=== PATIENT | male | born 1985 | race African-American/Black ===

== ENCOUNTER 2016-08-04 22:09 | Inpatient (IN) | payer OTHER ==
[~2016-08-04] VITALS: Ht 203.2 cm; Wt 93.0 kg
--- NOTE | 2016-08-04 22:40 | NUR ---
To bed 7 a 30 yo male bibself, patient states that he had appendectomy 10 days ago and now he has fever and headache x4 days. Patient is aaox4, ambulatory with steady gait. No s/s of acute distress. Initiated md tellez. Awaiting for er md tellez.
[2016-08-04] MEDS ORDERED: IV NS 0.9% 1,000 ML BAG IV ONE (23:00)
--- NOTE | 2016-08-04 23:00 | NUR ---
started a saline lock on the lac g20, blood drawn and sent to lab.
[2016-08-04] MEDS ORDERED: MORPHINE SULFATE INJ 4 MG/ML DISP.SYRIN ONE (23:04)
[2016-08-04] MEDS ORDERED: ONDANSETRON HCL/PF 4 MG/2 ML VIAL ONE (23:04)
[2016-08-04] MEDS ORDERED: IV NS 0.9% 1,000 ML ONE (23:04)
[2016-08-04] MEDS ORDERED: IV SET PRIMARY 1 EA INFUS.SET MC ONE (23:04)
[2016-08-04] MEDS: MORPHINE SULFATE INJ 2 MG/ML DISP.SYRIN IV ONE (23:12)
[2016-08-04] MEDS: ONDANSETRON HCL/PF 4 MG/2 ML VIAL IVP ONE (23:13)
[2016-08-04 23:23] LABS: APPEARANCE,URINE CLEAR (CLEAR); BILIRUBIN,URINE NEGATIVE (NEGATIVE); BLOOD, URINE NEGATIVE Ery/uL (NEGATIVE); COLOR,URINE YELLOW (YELLOW); KETONES,URINE NEGATIVE (NEGATIVE); LEUKOCYTE ESTERASE ,URINE NEGATIVE (NEGATIVE); NITRITE, URINE NEGATIVE (NEGATIVE); PROTEIN,URINE 1+ mg/dl (NEGATIVE); UGLUCOSE NEGATIVE (NEGATIVE); UROBILINOGEN,URINE 0.2 EU/dL (0.2)
[2016-08-04 23:26] LABS: BASOPHILS # (AUTO) 0.2 /CMM (0.0-0.2); BASOPHILS % (AUTO) 2.3 % (0.0-2.0); EOSINOPHILS # (AUTO) 0.5 /CMM (0.0-0.7); EOSINOPHILS % (AUTO) 6.1 % (0.0-6.0); HEMATOCRIT 37 % (39-51); HEMOGLOBIN 12.5 g/dL (13.5-17.5); LYMPHOCYTES # (AUTO) 1.2 /CMM (0.8-4.8); MEAN CORPUSCULAR HEMOGLOBIN 27 PG (26.0-33.0); MEAN CORPUSCULAR HGB CONC 34 g/dl (31.0-36.0); MEAN CORPUSCULAR VOLUME 78 fL (80-96); MONOCYTES # (AUTO) 0.9 /CMM (0.1-1.30); MONOCYTES % (AUTO) 11.7 % (2.0-12.0); NEUTROPHILS # (AUTO) 5.2 /CMM (1.8-8.9); NEUTROPHILS % (AUTO) 64.9 % (43.0-81.0); PLATELET COUNT (AUTO) 261 /CMM (150-450); RDW COEFFICIENT OF VARIATION 11.9 (11.5-15.0)
[2016-08-04 23:33] LABS: BACTERIA,URINE None seen /HPF (None Seen); RBC,URINE NONE SEEN /HPF (0-2); SQUAMOUS EPITHELIAL CELL,UR Rare /HPF (None Seen); WBC,URINE 0-2 /HPF (0-3)
[2016-08-04 23:34] LABS: INR 1.11 (0.87-1.13); PROTHROMBIN TIME 11.9 SECS (9.5-12.7)
[2016-08-04 23:34] LABS: MUCUS,URINE Rare /LPF (None Seen)
[2016-08-04 23:42] LABS: TROPONIN I < 0.017 ng/mL (0.00-0.056)
[2016-08-04 23:46] LABS: CALCIUM, SERUM 8.9 mg/dL (8.5-10.1); CARBON DIOXIDE 29 mmol/L (21-32); CHLORIDE 101 mmol/L (98-107); CREATININE 1.4 mg/dL (0.6-1.3); GLUCOSE 113 mg/dL (74-106); POTASSIUM 3.9 mmol/L (3.5-5.1); SODIUM SERUM 138 mmol/L (136-145); UREA NITROGEN, BLOOD 17 mg/dL (7-18)
[2016-08-04 23:51] LABS: ALANINE AMINOTRANSFERASE 114 U/L (12-78); ALBUMIN 3.3 g/dL (3.4-5.0); ALKALINE PHOSPHATASE 730 U/L (46-116); ASPARTATE AMINOTRANSFERASE 75 U/L (15-37); BILIRUBIN,DIRECT 0.2 mg/dL (0.0-0.2); BILIRUBIN,TOTAL 0.8 mg/dL (0.2-1.0)
[2016-08-04] MEDS ORDERED: IV NS 0.9% 250 ML IV ONE (23:52)
[2016-08-04] MEDS ORDERED: IOHEXOL-300 100 ML VIAL IV ONE (23:52)
--- NOTE | 2016-08-05 00:27 | NUR ---
Back from ct.
[2016-08-05] MEDS ORDERED: DICYCLOMINE HCL INJ 20 MG/2 ML AMPUL IM ONE ×2 (01:20→01:30)
[2016-08-05] MEDS ORDERED: ONDANSETRON HCL/PF 4 MG/2 ML VIAL ONE (01:34)
[2016-08-05] MEDS ORDERED: MORPHINE SULFATE INJ 4 MG/ML DISP.SYRIN ONE (01:34)
[2016-08-05] MEDS ORDERED: CHOL4PAC2 PO (01:35)
[2016-08-05] MEDS: MORPHINE SULFATE INJ 2 MG/ML DISP.SYRIN IV ONE (01:41)
[2016-08-05] MEDS: ONDANSETRON HCL/PF 4 MG/2 ML VIAL IVP ONE (01:43)
--- NOTE | 2016-08-05 01:46 | NUR ---
Report given to Jaswinder CHRISTY for medsurg admission.
[2016-08-05] MEDS ORDERED: CIPROFLOXACIN IV RTU 200 ML IV ONE (01:48)
[2016-08-05] MEDS ORDERED: IV SET PRIMARY PUMP SET 1 EA INFUS.SET MC ONE ×2 (01:48→14:54)
[2016-08-05] MEDS: FLAGYL/NS RTU 500 MG/100 ML PIGGYBACK IV ONE ×2 (01:56→03:18)
[2016-08-05] MEDS: CIPROFLOXACIN IV RTU 400 MG in PREMIX 1 EA IV SCH ×2 (01:56→13:37)
--- NOTE | 2016-08-05 01:57 | NUR ---
Non-admin flagyl 500mg ivpb order, received written order by Dr Elder for floor RN Jaswinder to carry out.
--- NOTE | 2016-08-05 02:06 | NUR ---
Transported to [facility] Room 107, no incident noted. Patient reported relief from abdl pain. VSS.
[2016-08-05 02:10] VITALS: BP 109/66
--- NOTE | 2016-08-05 02:30 | NUR ---
RN NOTE; BELONGINGS CHECKED BY CHARGE NURSE RICHARD AND DANNY WANG , BELONGINGS WITH PATIENT INCLUDING MONEY . SKIN INTACT PER PATIENT .
[2016-08-05] MEDS ORDERED: diphenhydrAMINE HCL 50 MG/ML VIAL ONE (02:40)
[2016-08-05] MEDS ORDERED: MORPHINE SULFATE INJ 2 MG/ML DISP.SYRIN IV PRN (03:00)
[2016-08-05] MEDS ORDERED: diphenhydrAMINE HCL 50 MG/ML VIAL IV PRN (03:00)
--- NOTE | 2016-08-05 03:00 | NUR ---
ADMISSION NOTE; A PATIENT ADMITTED FROM ER VIA GURNEY WITH THE DX OF ILEUS/ENTERITIS . PT IS A/O X 4 ,BREATHING EVEN AND UNLABORED ON ROOM AIR .NO ANY DISTRESS . WITH LAC 20 G PERIPHERAL IV INTACT AND PATENT . UNIT ORIENTATION GIVEN. ABLE TO GO TO THE RESTROOM . CALL LIGHT WITHIN REACH. BENADRYL IV GIVEN PER PT REQUEST . WILL CONTINUE TO MONITOR .
[2016-08-05] MEDS ORDERED: METRONIDAZOLE 500MG/ NS 100ML 100 ML IV ONE (03:01)
[2016-08-05] MEDS ORDERED: SECONDARY IV SET 1 EA INFUS.SET MC ONE (03:04)
[2016-08-05] MEDS ORDERED: PIPERACILLIN /TAZOBACTAM 3.375 G in IV D5W 50 ML IV SCH ×2 (06:00→12:00)
[2016-08-05] MEDS ORDERED: ONDANSETRON HCL/PF 4 MG/2 ML VIAL IVP PRN (06:00)
[2016-08-05] MEDS ORDERED: ACETAMINOPHEN 325 MG TABLET PO PRN (06:00)
--- NOTE | 2016-08-05 07:32 | NUR ---
RN EOS NOTE; PT REMAINED STABLE WITHOUT ANY DISTRESS . ALL NEEDS ATTENDED PROMPTLY. ALL PRESCRIBED MEDS TOLERATED WELL. CALL LIGHT WITHIN REACH. ENDORSED TO NEXT SHIFT FOR CONTINUITY OF CARE .
[2016-08-05 08:00] VITALS: BP 115/57
[2016-08-05] MEDS ORDERED: PANTOPRAZOLE 40 MG VIAL IV SCH (09:00)
[2016-08-05 11:05] VITALS: BP 115/57
[2016-08-05 12:21] LABS: BASOPHILS % (AUTO) 0.5 % (0.0-2.0); EOSINOPHILS # (AUTO) 0.4 /CMM (0.0-0.7); EOSINOPHILS % (AUTO) 4.8 % (0.0-6.0); HEMATOCRIT 35 % (39-51); HEMOGLOBIN 11.8 g/dL (13.5-17.5); LYMPHOCYTES # (AUTO) 1.3 /CMM (0.8-4.8); LYMPHOCYTES % (AUTO) 16.6 % (20.0-44.0); MEAN CORPUSCULAR HEMOGLOBIN 27 PG (26.0-33.0); MEAN CORPUSCULAR HGB CONC 34 g/dl (31.0-36.0); MEAN CORPUSCULAR VOLUME 79 fL (80-96); MONOCYTES % (AUTO) 12.4 % (2.0-12.0); NEUTROPHILS # (AUTO) 5.1 /CMM (1.8-8.9); NEUTROPHILS % (AUTO) 65.7 % (43.0-81.0); PLATELET COUNT (AUTO) 315 /CMM (150-450); RDW COEFFICIENT OF VARIATION 12.8 (11.5-15.0); RED BLOOD CELL COUNT(AUTO) 4.43 MIL/uL (4.5-6.0); WHITE BLOOD COUNT (AUTO) 7.7 K/uL (4.3-11.0)
[2016-08-05 12:31] LABS: CALCIUM, SERUM 9.1 mg/dL (8.5-10.1); CREATININE 1.6 mg/dL (0.6-1.3); POTASSIUM 4.5 mmol/L (3.5-5.1)
[2016-08-05 12:37] LABS: MAGNESIUM 1.9 mg/dL (1.8-2.4); PHOSPHORUS 3.8 mg/dL (2.5-4.9); TOTAL PROTEIN, SERUM 7.5 g/dL (6.4-8.2)
--- NOTE | 2016-08-05 14:36 | NUR ---
PATIENT SEEN BY DR. Lester BAILEY WHO GAVE VERBAL ORDERS FOR IV FLUIDS NS @ 75ML/HR FOR A TOTAL OF 2L.
[2016-08-05] MEDS ORDERED: IV NS 0.9% 1,000 ML BAG IV ONE (15:00)
[2016-08-05] MEDS: IV NS 0.9% 1,000 ML IV PRN ×2 (15:32→16:15)
== END 2016-08-05 17:48 | disposition left against medical advice (07) | DRG 389 ==
LOC: ER 22:09 → MEDSG1 08-05 01:43
PROVIDERS: ADMIT Internal Medicine; ATTEND Internal Medicine
DX: K56.7 Ileus, unspecified (principal); K51.90 Ulcerative colitis, unspecified, without complications; N17.9 Acute kidney failure, unspecified; R10.9 Unspecified abdominal pain; D50.9 Iron deficiency anemia, unspecified; R74.0 Nonspecific elevation of levels of transaminase and lactic acid dehydrogenase [LDH]
CPT/HCPCS: 36415; 70450-TC; 71010-TC; 80048-TC; 80053-TC; 80076-TC; 81000-TC; 83540-TC; 83605-TC; 83735-TC; 84100-TC; 84484-TC; 85025-TC; 85730-TC; 86140-TC; 86403-TC; 87040-TC; 87070-TC; 87081-TC; 87086-TC; 87400; A4216; A4606; C9113; J0500; J0744; J1200; J2270; J2405; J2543; J3490; J7030; J7050; J7060; Q9967; Z7610

== ENCOUNTER 2016-08-06 08:27 | Inpatient (IN) | payer OTHER ==
[~2016-08-06] VITALS: Ht 203.2 cm; Wt 93.0 kg
[~2016-08-06 08:27] MED LIST: CHOL4PAC2 PO
--- NOTE | 2016-08-06 08:39 | NUR ---
PT BIB SELF CO ABDOMINAL PAIN, DIARRHEA. GOWNED PT. AWAITING MD ORDER.
--- NOTE | 2016-08-06 08:45 | NUR ---
DR CRUZ AT BEDSIDE FOR EVAL
--- NOTE | 2016-08-06 09:00 | NUR ---
LAC #18 IV ACCESS. BLOOD SAMPLE COLLECTED SENT TO LAB
[2016-08-06 09:12] LABS: BASOPHILS % (AUTO) 0.7 % (0.0-2.0); EOSINOPHILS # (AUTO) 0.5 /CMM (0.0-0.7); HEMATOCRIT 35 % (39-51); HEMOGLOBIN 11.5 g/dL (13.5-17.5); LYMPHOCYTES # (AUTO) 1.2 /CMM (0.8-4.8); LYMPHOCYTES % (AUTO) 20.3 % (20.0-44.0); MEAN CORPUSCULAR HEMOGLOBIN 26 PG (26.0-33.0); MEAN CORPUSCULAR HGB CONC 33 g/dl (31.0-36.0); MEAN CORPUSCULAR VOLUME 79 fL (80-96); MONOCYTES # (AUTO) 0.8 /CMM (0.1-1.30); MONOCYTES % (AUTO) 12.8 % (2.0-12.0); NEUTROPHILS # (AUTO) 3.4 /CMM (1.8-8.9); NEUTROPHILS % (AUTO) 57.2 % (43.0-81.0); PLATELET COUNT (AUTO) 292 /CMM (150-450); RDW COEFFICIENT OF VARIATION 11.6 (11.5-15.0); RED BLOOD CELL COUNT(AUTO) 4.36 MIL/uL (4.5-6.0); WHITE BLOOD COUNT (AUTO) 5.9 K/uL (4.3-11.0)
[2016-08-06] MEDS ORDERED: IV NS 0.9% 1,000 ML ONE (09:37)
[2016-08-06] MEDS ORDERED: IV SET PRIMARY PUMP SET 1 EA INFUS.SET MC ONE ×2 (09:37→12:05)
[2016-08-06 09:39] LABS: CALCIUM, SERUM 9.3 mg/dL (8.5-10.1); CREATININE 1.4 mg/dL (0.6-1.3); POTASSIUM 4.2 mmol/L (3.5-5.1)
[2016-08-06 09:45] LABS: ALBUMIN 3.2 g/dL (3.4-5.0); BILIRUBIN,TOTAL 1.2 mg/dL (0.2-1.0); TOTAL PROTEIN, SERUM 7.6 g/dL (6.4-8.2)
--- NOTE | 2016-08-06 09:50 | NUR ---
GAVE REPORT TO LATISHAFARIHA FOR REPORT MEDSURG DR PARTIDA ADMITTING DX ADBOMINAL PAIN.
[2016-08-06] MEDS ORDERED: IV NS 0.9% 1,000 ML BAG IV ONE (10:00)
--- NOTE | 2016-08-06 10:15 | NUR ---
MS RN NOTES RECEIVED PT. FROM ER NURSE IN STABLE CONDITION. WILL BEGIN ADMISSION PROCESS AND AWAIT FURTHER ORDERS FROM THE DOCTOR.
[2016-08-06] MEDS ORDERED: IV NS 0.9% 1,000 ML BAG IV PRN (10:30)
--- NOTE | 2016-08-06 10:43 | NUR ---
MS RN NOTES PT IS REQUESTING TO BE MOVED TO ANOTHER ROOM OR FLOOR. STATES THAT HE DOES NOT LIKE HIS CURRENT ROOM. I EXPLAINED THAT THIS ROOM WAS THE ONLY PRIVATE ROOM AVAILABLE ON THIS UNIT AND WE WILL TRY OUR BEST TO ACCOMMODATE HIM HERE, HOWEVER, HE STILL REQUESTS TO BE MOVED. ALBINO THE CHARGE WAS MADE AWARE AND WILL CONTACT ADMINISTRATION.
[2016-08-06] MEDS ORDERED: IV NS 0.9% 1,000 ML IV PRN (11:00)
--- NOTE | 2016-08-06 12:00 | NUR ---
MS RN NOTES REPORT GIVEN TO MALAIKA IN [place]. PT. WAS TRANSFERRED TO ROOM 102 IN STABLE CONDITION.
[2016-08-06] MEDS ORDERED: SECONDARY IV SET 1 EA INFUS.SET MC ONE (12:05)
--- NOTE | 2016-08-06 12:05 | NUR ---
MS transfer station attendant notes from [facility] Patient is alert and oriented x 4, verbally responsive and able to make needs known. Started IV antibiotic flagyl as scheduled. IV hydration in placed. IV intact and patent. Dr. Junior is aware of the transfer from [facility] to [place]. Kept patient clean and comfortable in bed, call light with in patient reach, will continue to monitor accordingly. Vital signs checked and recorded.
[2016-08-06] MEDS: METRONIDAZOLE 500MG/ NS 100ML 500 MG in PREMIX 1 EA IV SCH ×2 (12:16→18:30)
[2016-08-06] MEDS ORDERED: ZOLPIDEM TARTRATE 5 MG TABLET PO PRN (12:30)
[2016-08-06] MEDS ORDERED: ACETAMINOPHEN 325 MG TABLET PO PRN (12:30)
[2016-08-06] MEDS ORDERED: ONDANSETRON HCL/PF 4 MG/2 ML VIAL IVP PRN (12:30)
[2016-08-06] MEDS ORDERED: MAG HYDROX/AL HYDROX/SIMETH 30 ML UDC PO PRN (12:30)
[2016-08-06] MEDS ORDERED: MAGNESIUM HYDROXIDE 30 ML UDC PO PRN (12:30)
[2016-08-06] MEDS ORDERED: HYDROCODONE/APAP 5/325MG 1 EACH TABLET PO PRN (12:30)
--- NOTE | 2016-08-06 12:53 | NUR ---
ms rn notes Informed Dr. Junior regarding patient asking for pain medication and MD aware and ordered Morphine 2 mg IVP Q3hrs PRN and D/C tylenol and norco due to patient is allergic to tylenol. Motrin 400 mg 1 tab PO Q6hrs PRN. All orders carried out and noted. Will continue to monitor accordingly.
[2016-08-06] MEDS ORDERED: IBUPROFEN 400 MG TABLET PO PRN (13:00)
[2016-08-06] MEDS: MORPHINE SULFATE INJ 2 MG/ML DISP.SYRIN IV PRN ×3 (13:01→22:07)
[2016-08-06] MEDS: LEVOFLOXACIN 750 MG /D5W 150ML 750 MG in PREMIX 1 EA IV SCH (14:04)
[2016-08-06] MEDS ORDERED: diphenhydrAMINE HCL 50 MG CAPSULE PO ONE (17:00)
[2016-08-06] MEDS ORDERED: diphenhydrAMINE HCL 50 MG/ML VIAL ONE (19:15)
--- NOTE | 2016-08-06 19:20 | NUR ---
RN OPENING NOTES: RECEIVED PT ON BED AWAKE ALOX4 ON ROOM AIR NOT IN APPARENT DISTRESS. IV ACCESS ON LFA G18. NO COMPLAINTS OF PAIN AT THIS TIME. PT KEPT NPO PER REPORT, FOR PENDING MRI OF ABDOMEN AN MRCP WITHOUT CONTRAST. PATIENT REQUESTING FOR BENADRYL IV PRIOR TO MRI. INFORMED DR ANDREY HACKETT PATIENT'S REQUEST; RECEIVED A ONE TIME ORDER OF 50 MG IVP OF BENADRYL PRIOR TO MRI PROCEDURE. ROUSTABOUT CAME TO AUDIO NARRATOR PATIENT, BUT ASKED TO COME BACK IN A FEW MINUTES MED STILL TO BE GIVEN ORDERED. CONTINUOUSLY MONITORED PATIENT. 1950 PATIENT PICKED UP BY TECH FROM ROOM FOR MRI VIA WHEELCHAIR, SAFETY MEASURES ENSURED. NOT IN APPARENT DISTRESS.
--- NOTE | 2016-08-06 19:22 | NUR ---
ms rn closing notes All needs provided, attended, and anticipated. Kept patient clean and comfortable in bed, call light with in patient reach, endorsed to next shift RN to continue care.
[2016-08-06] MEDS ORDERED: diphenhydrAMINE HCL 50 MG/ML VIAL IV ONE (19:30)
[2016-08-06 20:00] VITALS: BP 127/66
--- NOTE | 2016-08-06 21:15 | NUR ---
RN NOTES: PATIENT BACK FROM MRI/ MRCP, BACK IN ROOM. PATIENT GIVEN DIET ORDERED POST PROCEDURE. PATIENT NOT IN DISTRESS AT THIS TIME. 2206 PATIENT WITH COMPLAINTS OF PAIN ON RIGHT SIDE OF ABDOMEN, RATED 7-8/10. PRN PAIN MEDS MORPHINE GIVEN ORDERED. TO MONITOR FOR RESPONSE TO MEDICATION. PATIENT INQUIRED ABOUT SLEEPING MEDS. EDUCATED ABOUT TONIGHT'S MED LIST. PER PATIENT HE WOULD RATHER HAVE BENADRYL FOR SLEEP INSTEAD OF AMBIEN. CALLED [facility], DR LAST, RELAYED PATIENT'S CONCERN. MD WITH NEW ORDERS IN. PATIENT MADE AWARE. CONTINUOUSLY MONITORED PATIENT.
[2016-08-06] MEDS ORDERED: diphenhydrAMINE HCL 50 MG/ML VIAL IV PRN (22:30)
[2016-08-07] MEDS: METRONIDAZOLE 500MG/ NS 100ML 500 MG in PREMIX 1 EA IV SCH ×2 (02:46→09:31)
[2016-08-07] MEDS: MORPHINE SULFATE INJ 2 MG/ML DISP.SYRIN IV PRN (02:57)
[2016-08-07 04:00] VITALS: BP_SYST 127; BP_SYST 95; BP_DIAS 48; BP_DIAS 66
--- NOTE | 2016-08-07 06:49 | NUR ---
RN CLOSING NOTE: PATIENT REMAINED IN BED. NOT IN APPARENT DISTRESS AT THIS TIME. NO COMPLAINTS OF PAIN AT THIS TIME. EXPECTS TO BE DISCHARGED TODAY. AM LABS PENDING AT THIS TIME. REQUESTS TO HAVE IV HELD OFF FOR NOW HE WANTS TO BE MORE COMFORTABLE AND BEND HIS ARM. CONCEDED TO PATIENT'S REQUEST AT THIS TIME. SAFETY MEASURES ENSURED. CALL LIGHT IN REACH. TO ENDORSE TO AM SHIFT RN.
--- NOTE | 2016-08-07 07:00 | NUR ---
RN NOTES: RECEIVED PT ON BED, ALOX4 , RESPIRATION EVEN AND UNLABORED, ON RA NO SOB NOTED ON ROOM , LFA IV SITE G18 CDI, NO DISTRESS NOTED AT THIS TIME , SAFETY MEASURES ENSURED. SR UP x3, BED LOCKED AND IN LOWEST POSITION , REFUSED IVF AT THIS TIME , PT DRINKING FLUID WELL . CONTINUE TO MONITOR PT CLOSELY AND NOTIFY MD FOR ANY SIGNIFICANT CHANGES
[2016-08-07 07:11] LABS: BASOPHILS % (AUTO) 0.6 % (0.0-2.0); EOSINOPHILS # (AUTO) 0.5 /CMM (0.0-0.7); EOSINOPHILS % (AUTO) 11.1 % (0.0-6.0); HEMATOCRIT 31 % (39-51); HEMOGLOBIN 10.6 g/dL (13.5-17.5); LYMPHOCYTES # (AUTO) 1.4 /CMM (0.8-4.8); LYMPHOCYTES % (AUTO) 28.3 % (20.0-44.0); MEAN CORPUSCULAR HEMOGLOBIN 27 PG (26.0-33.0); MEAN CORPUSCULAR HGB CONC 34 g/dl (31.0-36.0); MEAN CORPUSCULAR VOLUME 79 fL (80-96); MONOCYTES # (AUTO) 0.6 /CMM (0.1-1.30); MONOCYTES % (AUTO) 12.1 % (2.0-12.0); NEUTROPHILS # (AUTO) 2.4 /CMM (1.8-8.9); NEUTROPHILS % (AUTO) 47.9 % (43.0-81.0); PLATELET COUNT (AUTO) 322 /CMM (150-450); RDW COEFFICIENT OF VARIATION 12.6 (11.5-15.0); RED BLOOD CELL COUNT(AUTO) 3.95 MIL/uL (4.5-6.0); WHITE BLOOD COUNT (AUTO) 4.9 K/uL (4.3-11.0)
[2016-08-07 07:22] LABS: CALCIUM, SERUM 8.7 mg/dL (8.5-10.1); CREATININE 1.2 mg/dL (0.6-1.3); MAGNESIUM 1.7 mg/dL (1.8-2.4); PHOSPHORUS 5.1 mg/dL (2.5-4.9); POTASSIUM 3.8 mmol/L (3.5-5.1)
[2016-08-07] MEDS ORDERED: PANTOPRAZOLE 40 MG TABLET.DR PO SCH (07:30)
[2016-08-07 08:00] VITALS: BP 112/70
[2016-08-07] MEDS ORDERED: SOD FERRIC GLUC 125 MG in IV NS 0.9% 100 ML IV ONE (09:00)
[2016-08-07] MEDS ORDERED: IV SET PRIMARY PUMP SET 1 EA INFUS.SET MC ONE ×2 (10:04→11:08)
[2016-08-07] MEDS: Magnesium 1GM/D5W 100ML PREMIX 100 ML IV SCH ×2 (10:11→11:00)
[2016-08-07] MEDS: LEVOFLOXACIN 750 MG /D5W 150ML 750 MG in PREMIX 1 EA IV SCH (10:53)
[2016-08-07] MEDS ORDERED: METR500T PO (12:19)
[2016-08-07] MEDS ORDERED: FERR-58 PO (12:19)
[2016-08-07] MEDS ORDERED: MAGNESIUM OXIDE 400 MG TABLET PO ONE (13:00)
--- NOTE | 2016-08-07 13:38 | NUR ---
RN NOTES DISCHARGE INSTRUCTION GIVEN PT VERBALIZES UNDERSTANDING , NO SKIN ISSUES NOTED, VSS STABLE, PT LEFT THE FLOOR TO MAIN ENTRANCE AMBULATORY ACCOMPANIED BY STAFF MEMBER IN STABLE CONDITION .
== END 2016-08-07 13:36 | disposition home or self-care (01) | DRG 389 ==
LOC: ER 08:28 → MED 09:34 → MEDSG1 12:06
PROVIDERS: ADMIT Internal Medicine; ATTEND Internal Medicine
DX: K56.7 Ileus, unspecified (principal); E44.1 Mild protein-calorie malnutrition; N17.9 Acute kidney failure, unspecified; K83.0 Cholangitis; K51.90 Ulcerative colitis, unspecified, without complications; N13.30 Unspecified hydronephrosis; A08.4 Viral intestinal infection, unspecified; E86.0 Dehydration; K76.0 Fatty (change of) liver, not elsewhere classified; E83.42 Hypomagnesemia; D50.9 Iron deficiency anemia, unspecified; R74.0 Nonspecific elevation of levels of transaminase and lactic acid dehydrogenase [LDH]; R70.0 Elevated erythrocyte sedimentation rate; R79.82 Elevated C-reactive protein (CRP); Z68.22 Body mass index [BMI] 22.0-22.9, adult; K82.8 Other specified diseases of gallbladder; N18.2 Chronic kidney disease, stage 2 (mild)
CPT/HCPCS: 36415; 74181-TC; 80048-TC; 80053-TC; 83735-TC; 84100-TC; 85025-TC; 85652-TC; 86140-TC; 87045-TC; 87081-TC; 87177; 87209; A4216; A4606; J1200; J1956; J2270; J2916; J3475; J3490; J7030; Q0163; Z7610